=== PATIENT | female | born 1990 | race Caucasian/White ===

== ENCOUNTER 2016-09-12 19:20 | Emergency (ER) | payer OTHER ==
[~2016-09-12] VITALS: Ht 175.3 cm; Wt 123.3 kg
[~2016-09-12 19:20] MED LIST: ALBU8.5H INH; AMOX-351 PO; FLUT9.9S NAS; HYDR-3841 PO; LITH300C3 PO; PRED20TA PO; PREN1TAB73 PO
--- OUTSIDE RECORDS SUMMARY | 2016-09-12 19:25 | XMS REPORT ---
Author Author GENERATED, SYSTEM Organization Unknown Address Unknown Phone Unavailable Care Team Providers Care Theater Usher Name Role Phone [facility] PP Unavailable Reason For Visit Chief Complaint CONTRACTIONS Social History Functional Status Vital Signs Results Problems Encounter Diagnosis No relevant problems exist. Encounters Encounter Diagnosis No relevant problems exist. Plan of Care Procedures No relevant procedures performed. Immunizations No immunizations administered or ordered. Hospital Course Hospital Discharge Instructions Allergies, Adverse Reactions, Alerts * Latex Allergy has not been assessed. * IV Contrast Allergy has not been assessed. Medication Medication reconciliation has not been performed.
--- OUTSIDE RECORDS SUMMARY | 2016-09-12 19:25 | XMS REPORT ---
Author Author GENERATED, SYSTEM Organization Unknown Address Unknown Phone Unavailable Care Team Providers Care Carburetor Specialist Name Role Phone [facility] PP Unavailable Reason For Visit Chief Complaint DIZZINESS, DROWSINESS Social History Functional Status Vital Signs Results Chemistry from 10/13/2015 7:00 PMSODIUM 142 MMOL/L (136-145 MMOL/L) POTASSIUM 3.5 MMOL/L (3.5-5.1 MMOL/L) CHLORIDE 106 MMOL/L (98-107 MMOL/L) TCO2 27.9 MMOL/L (21.0-32.0 MMOL/L) *ANION GAP 8.1 MMOL/L (8.0-16.0 MMOL/L) BUN 12 MG/DL (7-18 MG/DL) CREATININE 0.85 MG/DL (0.55-1.02 MG/DL) *BUN/CREATININE RATIO 14.1 (9.1-17.0 ) GLUCOSE 123 MG/DL H (65-99 MG/DL) *GFR EST NON AFR [place] >90 ML/MIN *GFRA EST AFR AMER >90 ML/MIN CALCIUM 8.4 MG/DL L (8.5-10.1 MG/DL) BILIRUBIN TOTAL 0.30 MG/DL (0.20-1.00 MG/DL) TOTAL PROTEIN 7.7 GM/DL (6.4-8.2 GM/DL) ALBUMIN 3.6 GM/DL (3.4-5.0 GM/DL) *GLOBULIN 4.1 GM/DL H (2.3-3.5 GM/DL) *A/G RATIO 0.9 MG/DL L (1.5-2.2 MG/DL) ALK PHOS 136 U/L H (46-116 U/L) ALT (SGPT) 97 U/L H (16-63 U/L) AST (SGOT) 20 U/L (15-37 U/L) Hematology from 10/13/2015 7:00 PMWBC 11.4 X10e3/UL H (3.6-11.2 X10e3/UL) RBC 4.77 X10e6/UL (3.63-4.92 X10e6/UL) HEMOGLOBIN 12.7 G/DL (11.0-14.3 G/DL) HEMATOCRIT 39.5 % (31.2-41.9 %) *MCV 82.8 FL (79.0-98.0 FL) *MCH 26.6 PG L (27.0-33.0 PG) *MCHC 32.1 G/DL (32.0-36.0 G/DL) *RDW 14.7 % (12.3-17.0 %) *RDWSD 42.4 (37.1-47.8 ) PLATELET 273 X10e3/UL (159-386 X10e3/UL) *MPV 8.9 FL (7.4-10.4 FL) AUTOMATED DIFF PERFORMED SEGS 69.5 % *LYMPHOCYTES 19.9 % *MONOCYTES 4.5 % *EOSINOPHILS 5.1 % *BASOPHILS 1.0 % *ABSOLUTE NEUTROPHILS 7.90 X10e3/UL H (1.80-7.80 X10e3/UL) *ABSOLUTE LYMPHOCYTES 2.30 X10e3/UL (1.00-3.00 X10e3/UL) *ABSOLUTE MONOCYTES 0.50 X10e3/UL (0.30-1.00 X10e3/UL) *ABSOLUTE EOSINOPHILS 0.60 X10e3/UL H (0.00-0.50 X10e3/UL) *ABSOLUTE BASOPHILS 0.10 X10e3/UL (0.00-0.20 X10e3/UL) Urinalysis from 10/13/2015 6:55 PM*URINE COLOR YELLOW (STRAW/YELL/DK YELL ) *URINE APPEARANCE CLOUDY A (CLEAR ) URINE PH 5.5 (5.0-8.0 ) URINE SPECIFIC GRAVITY 1.020 (<=1.005->=1.030 ) *URINE GLUCOSE NEGATIVE MG/DL (NEGATIVE MG/DL) *URINE BILIRUBIN NEGATIVE (NEGATIVE ) *URINE KETONES NEGATIVE MG/DL (NEGATIVE MG/DL) *URINE BLOOD MODERATE A (NEGATIVE ) *URINE PROTEIN NEGATIVE MG/DL (NEGATIVE MG/DL) *URINE UROBILINOGEN 0.2 EU/DL (0.2-1.0 EU/DL) *URINE NITRITES NEGATIVE (NEGATIVE ) *URINE LEUKOCYTES LARGE A (NEGATIVE ) UR NEGATIVE (NEGATIVE ) *MICROSCOPIC EXAM PERFORMED PERFORMED *WBC URINE 10-25 /HPF A (0-5 /HPF) *RBC URINE 1-5 /HPF A (0-1 /HPF) *SQUAMOUS EP. CELLS MANY /LPF A (NEG-FEW /LPF) *BACTERIA MANY /HPF A (NEGATIVE /HPF) Microbiology from 10/13/2015 6:55 PM* CULTURE URINE (Preliminary Result) Specimen Number: [id number] Sample Collection Date/Time: 10/13/2015 6:55 PM Specimen Source: Urine Clean Catch CULTURE URINE: 10,000 cfu/ml mixed colony types Problems Encounter Diagnosis No relevant problems exist. Additional Problems * Acute Appendicitis Comment:Problem resolved by [facility] Workflow upon Discharge , Status:Resolved. * Acute Pain Comment:Problem resolved by [facility] Workflow upon Discharge, Status :Resolved. * Fall Risk Comment:Problem resolved by [facility] Workflow upon Discharge, Status: Resolved. * Infection Risk Comment:Problem resolved by [facility] Workflow upon Discharge, Status:Resolved. * Vaginal Delivery Comment:Problem resolved by [facility] Workflow upon Discharge, Status:Resolved. Encounters Encounter Diagnosis No relevant problems exist. Plan of Care Procedures * Completed Laparoscopic Appendectomy, by MD DARCI VICTOR, on 06/10/2015 2:56 PM * Completed Procedure Code: 73994 Procedure Name: not valued, on 06/10/2015 12: 00 AM * Completed Procedure Code: 73.59 Procedure Name: not valued, on 10/03/2014 12: 00 AM * Completed Procedure Code: 75.69 Procedure Name: not valued, on 10/03/2014 12: 00 AM * Completed Procedure Code: 73.4 Procedure Name: not valued, on 10/02/2014 12: 00 AM Immunizations No immunizations administered or ordered. Hospital Course Hospital Discharge Instructions Allergies, Adverse Reactions, Alerts * Latex Allergy has not been assessed. * IV Contrast Allergy has not been assessed. * No Known Drug Allergies. Medication Medication reconciliation has not been performed.
--- OUTSIDE RECORDS SUMMARY | 2016-09-12 19:26 | XMS REPORT ---
Author Author GENERATED, SYSTEM Organization Unknown Address Unknown Phone Unavailable Care Team Providers Care Acquisitions Assistant Name Role Phone [facility] PP Unavailable Reason For Visit Chief Complaint ABD PAIN Social History Functional Status Vital Signs Results Urinalysis from 05/26/2014 10:40 AMURINE COLOR STRAW (STRAW/YELL/DK YELL ) URINE APPEARANCE CLEAR (CLEAR ) URINE PH 7.0 (5.0-8.0 ) URINE SPECIFIC GRAVITY 1.010 (<=1.005->=1.030 ) URINE GLUCOSE NEGATIVE MG/DL (NEGATIVE MG/DL) URINE BILIRUBIN NEGATIVE (NEGATIVE ) URINE KETONES NEGATIVE MG/DL (NEGATIVE MG/DL) URINE BLOOD NEGATIVE (NEGATIVE ) URINE PROTEIN NEGATIVE MG/DL (NEGATIVE MG/DL) URINE UROBILINOGEN 0.2 EU/DL (0.2-1.0 EU/DL) URINE NITRITES NEGATIVE (NEGATIVE ) *URINE LEUKOCYTES NEGATIVE (NEGATIVE ) Problems Encounter Diagnosis No relevant problems exist. [...]
--- OUTSIDE RECORDS SUMMARY | 2016-09-12 19:26 | XMS REPORT ---
Author Author GENERATED, SYSTEM Organization Unknown Address Unknown Phone Unavailable Care Team Providers Care Director Loss Prevention Name Role Phone [facility] PP Unavailable Reason For Visit Chief Complaint HEAD INJURY Social History Functional Status Vital Signs Results Chemistry from 11/28/2015 12:02 PMSODIUM 142 MMOL/L (136-145 MMOL/L) POTASSIUM 3.8 MMOL/L (3.5-5.1 MMOL/L) CHLORIDE 106 MMOL/L (98-107 MMOL/L) TCO2 29.6 MMOL/L (21.0-32.0 MMOL/L) *ANION GAP 6.4 MMOL/L L (8.0-16.0 MMOL/L) BUN 10 MG/DL (7-18 MG/DL) CREATININE 0.91 MG/DL (0.55-1.02 MG/DL) *BUN/CREATININE RATIO 11.0 (9.1-17.0 ) GLUCOSE 105 MG/DL H (65-99 MG/DL) *GFR EST NON AFR [place] 88 ML/MIN *GFRA EST AFR AMER >90 ML/MIN CALCIUM 9.1 MG/DL (8.5-10.1 MG/DL) BILIRUBIN TOTAL 0.50 MG/DL (0.20-1.00 MG/DL) TOTAL PROTEIN 7.5 GM/DL (6.4-8.2 GM/DL) ALBUMIN 3.5 GM/DL (3.4-5.0 GM/DL) *GLOBULIN 4.0 GM/DL H (2.3-3.5 GM/DL) *A/G RATIO 0.9 MG/DL L (1.5-2.2 MG/DL) ALK PHOS 105 U/L (46-116 U/L) ALT (SGPT) 40 U/L (16-63 U/L) AST (SGOT) 9 U/L L (15-37 U/L) TROPONIN-I <0.017 NG/ML (0.000-0.056 NG/ML) *COCAINE NEGATIVE (NEG <150 ) *PCP NEGATIVE (NEG <25 ) *CANNABINOIDS NEGATIVE (NEG <50 ) *BENZODIAZEINE NEGATIVE (NEG <200 ) *AMPHETAMINE NEGATIVE (NEG <500 ) *BARBITURATES NEGATIVE (NEG <200 ) *OPIATES NEGATIVE (NEG <300 ) Hematology from 11/28/2015 12:02 PMWBC 8.0 X10e3/UL (3.6-11.2 X10e3/UL) RBC 4.71 X10e6/UL (3.63-4.92 X10e6/UL) HEMOGLOBIN 12.7 G/DL (11.0-14.3 G/DL) HEMATOCRIT 39.2 % (31.2-41.9 %) *MCV 83.1 FL (79.0-98.0 FL) *MCH 26.9 PG L (27.0-33.0 PG) *MCHC 32.4 G/DL (32.0-36.0 G/DL) *RDW 14.9 % (12.3-17.0 %) *RDWSD 43.8 (37.1-47.8 ) PLATELET 256 X10e3/UL (159-386 X10e3/UL) *MPV 9.1 FL (7.4-10.4 FL) AUTOMATED DIFF PERFORMED SEGS 66.9 % *LYMPHOCYTES 22.7 % *MONOCYTES 6.2 % *EOSINOPHILS 3.1 % *BASOPHILS 1.1 % *ABSOLUTE NEUTROPHILS 5.30 X10e3/UL (1.80-7.80 X10e3/UL) *ABSOLUTE LYMPHOCYTES 1.80 X10e3/UL (1.00-3.00 X10e3/UL) *ABSOLUTE MONOCYTES 0.50 X10e3/UL (0.30-1.00 X10e3/UL) *ABSOLUTE EOSINOPHILS 0.20 X10e3/UL (0.00-0.50 X10e3/UL) *ABSOLUTE BASOPHILS 0.10 X10e3/UL (0.00-0.20 X10e3/UL) Urinalysis from 11/28/2015 12:02 PM*URINE COLOR YELLOW (STRAW/YELL/DK YELL ) *URINE APPEARANCE CLEAR (CLEAR ) URINE PH 6.0 (5.0-8.0 ) URINE SPECIFIC GRAVITY 1.020 (<=1.005->=1.030 ) *URINE GLUCOSE NEGATIVE MG/DL (NEGATIVE MG/DL) *URINE BILIRUBIN NEGATIVE (NEGATIVE ) *URINE KETONES NEGATIVE MG/DL (NEGATIVE MG/DL) *URINE BLOOD NEGATIVE (NEGATIVE ) *URINE PROTEIN NEGATIVE MG/DL (NEGATIVE MG/DL) *URINE UROBILINOGEN 0.2 EU/DL (0.2-1.0 EU/DL) *URINE NITRITES NEGATIVE (NEGATIVE ) *URINE LEUKOCYTES TRACE A (NEGATIVE ) *MICROSCOPIC EXAM PERFORMED PERFORMED *WBC URINE 0-1 /HPF (0-5 /HPF) *RBC URINE 0-1 /HPF (0-1 /HPF) *SQUAMOUS EP. CELLS FEW /LPF (NEG-FEW /LPF) *BACTERIA FEW /HPF A (NEGATIVE /HPF) Microbiology from 11/28/2015 12:02 PM* CULTURE URINE (Preliminary Result) Specimen Number: [id number] Sample Collection Date/Time: 11/28/2015 12:02 PM Specimen Source: Urine CULTURE URINE: >100,000 cfu/ml 3 or more gram positive colony types CT Scan from 11/28/2015 12:57 PMCT CEREBRAL W/O CONTRAST History: dizizness head injury . Pt hit her head on Sunday against a railing on [employer]. pt states she could not miss work or else she would get kicked out of [employer], so she has to have a doctors note. Pt has what appears to be sores all over her body and where she pointed is scabbed over on right adventist. Pts eyes are equal and reactive, no slurred speech, A&O and responds well. Priors: None. Findings: Ventricles and Extra axial spaces: Normal in size and morphology for the patient's age. Hemorrhage: None. Cerebral parenchyma: Normal. Mass effect/midline shift: None. Brainstem/Cerebellum: Normal. Calvarium: Normal. Visualized Paranasal sinuses/Mastoids: Clear. Impression: No acute intracranial abnormality. Electronically signed by: Bailey Diaz MD Dictated: 11/28/2015 13:21 Problems Encounter Diagnosis No relevant problems exist. [...] 06/10/2015 2:56 PM * Completed Procedure Code: 18603 Procedure Name: not valued, on 06/10/2015 12: [...]
--- OUTSIDE RECORDS SUMMARY | 2016-09-12 19:26 | XMS REPORT ---
Author Author GENERATED, SYSTEM Organization Unknown Address Unknown Phone Unavailable Care Team Providers Care Applications Coordinator Name Role Phone [facility] PP Unavailable Reason For Visit Chief Complaint INDUCTION Social History Functional Status Vital Signs Hospital Vital Signs from 10/05/2014 10:04 AM:* Height : 5/9 ft,in Results Blood Gas from 10/03/2014 6:[address] PH 7.250 (7.130-7.430 ) ART. CORD BL. PCO2 48.0 MM HG (30.0-60.0 MM HG) *ART. CORD BL. PO2 <40 MM HG H (5-25 MM HG) ART. CORD BL. BE -6.4 L (-2.5-11.0 ) ZENOBIA. CORD BL. PH 7.250 (7.190-7.490 ) ZENOBIA. CORD BL. PCO2 48.0 MM HG (30.0-60.0 MM HG) ZENOBIA. CORD BL. PO2 <40 MM HG (15-45 MM HG) ZENOBIA. CORD BL. BE -6.4 L (-2.5-9.0 ) Chemistry from 10/02/2014 5:06 PMSODIUM 137 MMOL/L (136-145 MMOL/L) POTASSIUM 3.8 MMOL/L (3.5-5.1 MMOL/L) CHLORIDE 104 MMOL/L (98-107 MMOL/L) TCO2 22.2 MMOL/L (21.0-32.0 MMOL/L) ANION GAP 10.8 MMOL/L (8.0-16.0 MMOL/L) BUN 6 MG/DL L (7-18 MG/DL) CREATININE 0.63 MG/DL (0.43-0.83 MG/DL) BUN/CREATININE RATIO 9.5 (9.1-17.0 ) GLUCOSE 87 MG/DL (65-99 MG/DL) GFR EST NON AFR [place] >90 ML/MIN GFRA EST AFR AMER >90 ML/MIN CALCIUM 8.7 MG/DL (8.5-10.1 MG/DL) ALT (SGPT) 14 U/L L (16-63 U/L) AST (SGOT) 9 U/L L (15-37 U/L) URIC ACID 6.1 MG/DL H (2.6-6.0 MG/DL) Hematology from 10/04/2014 5:55 AMWBC 11.7 X10e3/UL H (3.6-11.2 X10e3/UL) RBC 3.96 X10e6/UL (3.63-4.92 X10e6/UL) HEMOGLOBIN 10.9 G/DL L (11.0-14.3 G/DL) HEMATOCRIT 32.8 % (31.2-41.9 %) MCV 82.9 FL (79.0-98.0 FL) MCH 27.5 PG (27.0-33.0 PG) MCHC 33.2 G/DL (32.0-36.0 G/DL) RDW 16.0 % (12.3-17.0 %) RDWSD 45.5 (37.1-47.8 ) PLATELET 226 X10e3/UL (159-386 X10e3/UL) MPV 9.4 FL (7.4-10.4 FL) AUTOMATED DIFF PERFORMED SEGS 72.9 % LYMPHOCYTES 18.9 % MONOCYTES 5.7 % EOSINOPHILS 2.0 % BASOPHILS 0.5 % ABSOLUTE NEUTROPHILS 8.60 X10e3/UL H (1.80-7.80 X10e3/UL) ABSOLUTE LYMPHOCYTES 2.20 X10e3/UL (1.00-3.00 X10e3/UL) ABSOLUTE MONOCYTES 0.70 X10e3/UL (0.30-1.00 X10e3/UL) ABSOLUTE EOSINOPHILS 0.20 X10e3/UL (0.00-0.50 X10e3/UL) ABSOLUTE BASOPHILS 0.10 X10e3/UL (0.00-0.20 X10e3/UL) Hematology from 10/02/2014 5:06 PMWBC 12.4 X10e3/UL H (3.6-11.2 X10e3/UL) RBC 4.22 X10e6/UL (3.63-4.92 X10e6/UL) HEMOGLOBIN 11.6 G/DL (11.0-14.3 G/DL) HEMATOCRIT 35.1 % (31.2-41.9 %) MCV 83.1 FL (79.0-98.0 FL) MCH 27.4 PG (27.0-33.0 PG) MCHC 33.0 G/DL (32.0-36.0 G/DL) RDW 16.0 % (12.3-17.0 %) RDWSD 45.5 (37.1-47.8 ) PLATELET 252 X10e3/UL (159-386 X10e3/UL) MPV 10.0 FL (7.4-10.4 FL) MANUAL DIFF PERFORMED SEGS 84.0 % BANDS 1.0 % LYMPHOCYTES 13.0 % MONOCYTES 1.0 % EOSINOPHILS 0.0 % BASOPHILS 1.0 % ABSOLUTE NEUTROPHILS 10.54 X10e3/UL H (1.80-7.80 X10e3/UL) ABSOLUTE LYMPHOCYTES 1.61 X10e3/UL (1.00-3.00 X10e3/UL) ABSOLUTE MONOCYTES 0.12 X10e3/UL L (0.30-1.00 X10e3/UL) ABSOLUTE EOSINOPHILS 0.00 X10e3/UL (0.00-0.50 X10e3/UL) ABSOLUTE BASOPHILS 0.12 X10e3/UL (0.00-0.20 X10e3/UL) NUCLEATED RBC MANUAL 1.0 /100 WBC (0.0-1.0 /100 WBC) OVALOCYTES 1+ Hematology from 10/02/2014 2:24 PMWBC 13.2 X10e3/UL H (3.6-11.2 X10e3/UL) RBC 4.28 X10e6/UL (3.63-4.92 X10e6/UL) HEMOGLOBIN 11.7 G/DL (11.0-14.3 G/DL) HEMATOCRIT 35.4 % (31.2-41.9 %) MCV 82.9 FL (79.0-98.0 FL) MCH 27.2 PG (27.0-33.0 PG) MCHC 32.9 G/DL (32.0-36.0 G/DL) RDW 15.6 % (12.3-17.0 %) RDWSD 45.1 (37.1-47.8 ) PLATELET 247 X10e3/UL (159-386 X10e3/UL) MPV 10.2 FL (7.4-10.4 FL) AUTOMATED DIFF PERFORMED SEGS 81.7 % LYMPHOCYTES 11.8 % MONOCYTES 5.3 % EOSINOPHILS 0.8 % BASOPHILS 0.4 % ABSOLUTE NEUTROPHILS 10.70 X10e3/UL H (1.80-7.80 X10e3/UL) ABSOLUTE LYMPHOCYTES 1.60 X10e3/UL (1.00-3.00 X10e3/UL) ABSOLUTE MONOCYTES 0.70 X10e3/UL (0.30-1.00 X10e3/UL) ABSOLUTE EOSINOPHILS 0.10 X10e3/UL (0.00-0.50 X10e3/UL) ABSOLUTE BASOPHILS 0.10 X10e3/UL (0.00-0.20 X10e3/UL) Blood Bank from 10/03/2014 8:31 AMTEST COMMENT BB See Below Problems Encounter Diagnosis * Vaginal Delivery Comment:Problem resolved by [facility] Workflow upon Discharge, Status:Resolved. Encounters Encounter Diagnosis * Vaginal Delivery Comment:Problem resolved by [facility] Workflow upon Discharge, Status:Resolved. Plan of Care Treatment Plan from 10/05/2014 11:45 AM:* Care Management Note : workers compensation claims analyst was informed by RN that patient was inquiring about how to get baby onto [facility] ; SW made referral to Lucy Taylor to follow up with patient regarding Medicaid information. Procedures No relevant procedures performed. Immunizations No immunizations administered or ordered. Hospital Course Hospital Discharge Instructions Allergies, Adverse Reactions, Alerts * No Latex Allergy. * No IV Contrast Allergy. * No Known Drug Allergies. Medication It is the responsibility of the patient or patient indirect sales representative to confirm the list of medications with either the patient's personal care provider or the patient's follow-up care provider to ensure the patient has an appropriate list of medications to take at home. Discharge medications New medications* acetaminophen-codeine 300 mg-30 mg Tablet, Ordered By: JOSSY ELIZABETH MD Directions: 1-2 oral every four hours PRN PAIN * sertraline 25 mg Tablet, Ordered By: JOSSY ELIZABETH MD Directions: 1 tablet oral daily Stopped medications* None
--- OUTSIDE RECORDS SUMMARY | 2016-09-12 19:26 | XMS REPORT ---
Author Author GENERATED, SYSTEM Organization Unknown Address Unknown Phone Unavailable Care Team Providers Care Profiler Name Role Phone [facility] PP Unavailable Reason For Visit Chief [...]
--- OUTSIDE RECORDS SUMMARY | 2016-09-12 19:26 | XMS REPORT | Continuity of Care Document ---
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 Visit Date/Time Discharge Status Pt. Type Provider Facility Loc./Unit Complaint [id number] 06/08/2015 00:00:00 05/17/2016 00: 00:00 [facility] Outpatient DOMENICO PEARSON APRN
--- OUTSIDE RECORDS SUMMARY | 2016-09-12 19:27 | XMS REPORT | Continuity of Care Document ---
Author Author [facility] Organization [facility] Address Unknown Phone Unavailable Care Team Providers Care Production Internship Name Role Phone IVIS SANDOVAL Primary Care Physician [phone] Insurance Providers Guarantor Maria Teresa Lim Address [address] [facility] [address] [place] [address] Email DENIED 16 Payer [employer] Policy Number [id number] Subscriber's Name Juana Blum Relationship 19 Child Group Number [id number] Payer [employer] Policy Number [id number] Subscriber's Name ArnaudNba Ortez Relationship 19 Child Group Number [id number] Chief Complaint and Reason for Visit Chief Complaint Cough,Fever,Flu,URI Reason for Visit Acute bronchitis Problems Active Problems Medical Problem Onset Date Status Acute bronchitis Unknown Acute Past Problems Medical Problem Onset Date Allergic rhinitis due to allergen Unknown Atypical chest pain Unknown Fall on same level Unknown Mild concussion Unknown Nausea Unknown Viral syndrome Unknown Medications Current Home Medications Medication Dose Units Route Directions Days Qty Instructions Start Date Albuterol Sulfate (Proair Hfa 90 Mcg/Actuation) 8.5 Gm Hfa.aer.ad 1 Puff Inhalation Every 4 Hours as needed for Wheezing [address] Max Snider Surgical [employer] [address] [phone] 07/18/16 Amoxicillin/Potassium Clav (Augmentin 875-125 Tablet) 1 Each Tablet 1 Tab Oral Twice A Day 7 Days 14 Tablet TAKE WITH MEALS Supervising physician Dr. Max Snider [facility] [address] [facility] [phone] 07/18/16 Fluticasone Propionate (Flonase Allergy Relief 50 Mcg/Actuation Nasal) 9.9 Ml [place].susp 2 [place] Intranasal Bedtime 06/25/16 Hydroxyzine Pamoate 25 Mg Capsule 25 Mg Oral Three Times A Day [place] Carbonate 300 Mg Capsule 300 Mg Oral Three Times A Day Pnv95/Ferrous Fumarate/Fa ( Tablet) 1 Each Tablet 1 Tab Oral Daily 06/25/16 Prednisone 20 Mg Tablet 60 Mg Oral Daily 5 Days 15 Tablet Take in the am to avoid insomnia Supervising physician Dr. Max Snider Surgical Processor * [facility] 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 Plan of Care Discharge Date 07/18/16 11:20am Disposition 01 DISCHARGED HOME, SELF-CARE Condition at Discharge Stable Instructions/Education Provided Cigarette Smoking and Your Health (GEN) Acute Bronchitis (ED) Forms Provided [facility] Work/School Permit Prescriptions See Medication Section Referrals IVIS SANDOVAL Address: [address] [place] [address] [address] [place] [phone] BONIFACIO CRANDALL MD Address: [address] [place] [address] [address] [place] [address] Functional Status No functional status results. Allergies, Adverse Reactions, Alerts Allergen Type Severity Reaction Status Last Updated Tramadol Allergy Unknown SEIZURE Active 07/18/16 Immunizations Query Response on File Recorded Date/Time Influenza Vaccine Hx NONE 07/18/16 10:39am Tdap Vaccine Hx 04/25/16 06/25/16 4:35pm Vital Signs Acute Vital Signs Vital Response Date/Time Temperature (Fahrenheit) 97.3 deg F (96.8 - 99.1) 07/18/2016 10:44am Temperature (Calculated Celsius) 36.49361 degrees C (36.0 - 37.3) 07/18/2016 10:44am Pulse Rate (adult) 87 bpm (60 - 100) 07/18/2016 10:44am Respiratory Rate 16 breaths/min (10 - 20) 06/25/2016 5:26pm O2 Sat by Pulse Oximetry 97 % (90 - 100) 07/18/2016 10:44am Blood Pressure 120/65 mm Hg 07/18/2016 10:44am Height (Feet) 5 feet 07/18/2016 10:44am Height (Inches) 8.00 inches 07/18/2016 10:44am Weight (Kilograms) 129.900 kg 07/18/2016 10:44am Body Mass Index (BMI) 43.0 07/18/2016 10:44am Results Laboratory Results Test Name Result Units Flags Reference Collection Date/Time Result Date/ Time Comments White Blood Count 9.5 T/MM3 4.5-11.0 05/30/2016 7:54am 05/30/2016 7: 59am Red Blood Count 4.28 M/MM3 4.00-5.20 05/30/2016 7:54am 05/30/2016 7: 59am Hemoglobin 11.8 GM/DL L 12-16 05/30/2016 7:54am 05/30/2016 7:59am Hematocrit 36.5 % 36-46 05/30/2016 7:54am 05/30/2016 7:59am Mean Corpuscular Volume 85.3 UM3 80-100 05/30/2016 7:54am 05/30/2016 7: 59am Mean Corpuscular Hemoglobin 27.6 UUG 26-34 05/30/2016 7:54am 2015 7:59am Mean Corpuscular Hemoglobin Concent 32.3 GM/DL 31-37 05/30/2016 7:54am 05/30/2016 7:59am RDW Standard Deviation 42.7 FL 36.9-50.2 05/30/2016 7:54am 05/30/2016 7 :59am Platelet Count 283 T/MM3 130-400 05/30/2016 7:54am 05/30/2016 7:59am Mean Platelet Volume 10.3 UM3 9.4-12.4 05/30/2016 7:54am 05/30/2016 7: 59am Neutrophils (%) (Auto) 68.7 % H 33-66 05/30/2016 7:54am 05/30/2016 7: 59am Lymphocytes (%) (Auto) 22.1 % L 23-45 05/30/2016 7:54am 05/30/2016 7: 59am Monocytes (%) (Auto) 4.6 % 0-9.0 05/30/2016 7:54am 05/30/2016 7:59am Eosinophils (%) (Auto) 4.2 % H 0-4 05/30/2016 7:54am 05/30/2016 7:59am Basophils (%) (Auto) 0.3 % 0-2 05/30/2016 7:54am 05/30/2016 7:59am Immature Granulocyte % (Auto) 0.1 % 0.0-0.5 05/30/2016 7:54am 2015 7:59am Absolute Neutrophils (auto) 6.5 T/MM3 1.8-7.7 05/30/2016 7:54am 2015 7:59am Absolute Lymphocytes (auto) 2.1 T/MM3 1-4.8 05/30/2016 7:54am 2015 7:59am Absolute Monocytes (auto) 0.4 T/MM3 0-0.8 05/30/2016 7:54am 05/30/2016 7:59am Absolute Eosinophils (auto) 0.4 T/MM3 0-0.5 05/30/2016 7:54am 2015 7:59am Absolute Basophils (auto) 0.0 T/MM3 0-0.2 05/30/2016 7:54am 05/30/2016 7:59am Absolute Immature Granulocyte (auto 0.01 T/MM3 0.00-0.03 05/30/2016 7: 54am 05/30/2016 7:59am Prothromb Time International Ratio 1.06 H 0.76-1.04 05/30/2016 7:54am 05/30/2016 8:03am THERAPUTIC RANGE=2.00-3.00 FOR ANTI-THROMBOSIS THERAPUTIC RANGE=2.50-3.50 FOR IMPLANTED VALVE Icterus Index < 2 0-7 05/30/2016 7:54am 05/30/2016 8:21am Chemistry Specimen Hemolysis < 15 0-25 05/30/2016 7:54am 05/30/2016 8 :21am 0-25: Specimen Exhibited No Hemolysis. Turbidity < 20 0-20 05/30/2016 7:54am 05/30/2016 8:21am Sodium Level 142 MEQ/L 134-144 05/30/2016 7:54am 05/30/2016 8:08am Potassium Level 4.0 MEQ/L 3.6-5 05/30/2016 7:54am 05/30/2016 8:08am Chloride Level 108 MEQ/L H 98-107 05/30/2016 7:54am 05/30/2016 8:08am Carbon Dioxide Level 23 MEQ/L 22-30 05/30/2016 7:54am 05/30/2016 8: 08am Anion Gap 11 MEQ/L 5-15 05/30/2016 7:54am 05/30/2016 8:08am Blood Urea Nitrogen 13.0 MG/DL 7-17 05/30/2016 7:54am 05/30/2016 8: 08am Creatinine 0.8 MG/DL 0.7-1.2 05/30/2016 7:54am 05/30/2016 8:08am BUN/Creatinine Ratio 16 RATIO 6-26 05/30/2016 7:54am 05/30/2016 8:08am Glomerular Filtration Rate Calc 87 05/30/2016 7:54am 05/30/2016 8: 08am Glucose Level 108 MG/DL 65-110 05/30/2016 7:54am 05/30/2016 8:08am Calculated Osmolality 274 MOSM/KG 261-280 05/30/2016 7:54am 05/30/2016 8:08am Calcium Level 9.4 MG/DL 8.4-10.2 05/30/2016 7:54am 05/30/2016 8:08am Total Bilirubin 0.80 MG/DL 0.20-1.30 05/30/2016 7:54am 05/30/2016 8: 08am Alkaline Phosphatase 83 U/L 38-126 05/30/2016 7:54am 05/30/2016 8:08am Total Protein 7.7 G/DL 6.3-8.2 05/30/2016 7:54am 05/30/2016 8:08am Albumin 4.2 G/DL 3.5-5.0 05/30/2016 7:54am 05/30/2016 8:08am Globulin 3.5 G/DL 2.4-3.6 05/30/2016 7:54am 05/30/2016 8:08am Albumin/Globulin Ratio 1.2 RATIO 1.1-2.2 05/30/2016 7:54am 05/30/2016 8 :08am Aspartate Amino Transf (AST/SGOT) 17 U/L 14-36 05/30/2016 7:54am 2015 8:08am Alanine Aminotransferase (ALT/SGPT) 45 U/L 9-52 05/30/2016 7:54am 05/30 8:08am Troponin I < 0.012 ng/ml 0-0.12 05/30/2016 7:54am 05/30/2016 8:21am Troponin values with a difference of 55% increase from orginal troponin value represent a true biological DELTA value. (%increase Calc=Orginal Troponin value, divided by subsequent Troponin value, multiplied by 100) [id number]-Type Natriuretic Peptide 44 PG/ML 0-175 05/30/2016 7:54am 8:21am Rule in cut points: <50 years old=450; 50-75 years old=900; >75 years old=1800; When utilizing ProBNP rule-in cut points, adjustment for impaired renal function is typically not required. Magnesium Level 2.0 MG/DL 1.6-2.3 05/30/2016 7:54am 05/30/2016 8:08am [place] Level 0.5 MMOL/L L 0.6-1.2 05/30/2016 7:54am 05/30/2016 9:01am Thyroid Stimulating Hormone (TSH) 1.98 MIU/L 0.47-4.68 05/30/2016 7: 54am 05/30/2016 8:38am Glucometer 89 mg/dL 65-110 05/30/2016 7:54am 05/30/2016 8:00am Procedures Procedure Status Date Provider(s) Chest x-ray 2vw frontal&latl Completed 05/30/16 Comprehen metabolic panel Completed 05/30/16 Assay of lithium Completed 05/30/16 Urine test Completed 05/30/16 Reagent strip/blood glucose Completed 05/30/16 Assay of magnesium Completed 05/30/16 Assay of natriuretic peptide Completed 05/30/16 Assay thyroid stim hormone Completed 05/30/16 Assay of troponin quant Completed 05/30/16 Complete cbc w/auto diff wbc Completed 05/30/16 Prothrombin time Completed 05/30/16 Electrocardiogram tracing Completed 05/30/16 Ther/proph/diag inj iv push Completed 05/30/16 Emergency dept visit Completed 05/30/16 [id number]"INJECTION, ONDANSETRON HYDROCHLORIDE, PER 1 MG" Completed 05/30/16 Emergency dept visit Completed 06/04/16 Ct head/brain w/o dye Completed 06/25/16 Urine test Completed 06/25/16 Emergency dept visit Completed 06/25/16 Encounters Encounter Location Arrival/Admit Date Discharge/Depart Date Attending Provider Departed Emergency Room [facility] 07/18/16 10:22am 07/18/16 11: 20am LIZETT TIJERINA APRN Departed Emergency Room [facility] 06/25/16 4:03pm 06/25/16 5: 26pm MAX SNIDER MD Departed Emergency Room [facility] 06/04/16 10:50pm 06/05/16 12: 01am MAX SNIDER MD Departed Emergency Room [facility] 05/30/16 7:29am 05/30/16 11: 02am CARLOZ SEXTON MD Recent Diagnosis
--- OUTSIDE RECORDS SUMMARY | 2016-09-12 19:27 | XMS REPORT ---
Author Author GENERATED, SYSTEM Organization Unknown Address Unknown Phone Unavailable Care Team Providers Care Reconciliation Specialist Name Role Phone [facility] PP Unavailable Reason For Visit Chief Complaint 39 WKS CONTRACTION Social History Functional Status Vital Signs Results [...]
--- OUTSIDE RECORDS SUMMARY | 2016-09-12 19:27 | XMS REPORT ---
Author Author GENERATED, SYSTEM Organization Unknown Address Unknown Phone Unavailable Care Team Providers Care Tactical/Mobile Watch Officer Name Role Phone [facility] PP Unavailable Reason For Visit Chief Complaint CRISIS Social History Functional Status Vital Signs Results Chemistry from 10/31/2015 12:26 PMSODIUM 142 MMOL/L (136-145 MMOL/L) POTASSIUM 3.9 MMOL/L (3.5-5.1 MMOL/L) CHLORIDE 106 MMOL/L (98-107 MMOL/L) TCO2 28.9 MMOL/L (21.0-32.0 MMOL/L) *ANION GAP 7.1 MMOL/L L (8.0-16.0 MMOL/L) BUN 13 MG/DL (7-18 MG/DL) CREATININE 0.95 MG/DL (0.55-1.02 MG/DL) *BUN/CREATININE RATIO 13.7 (9.1-17.0 ) GLUCOSE 105 MG/DL H (65-99 MG/DL) *GFR EST NON AFR MALIAN 83 ML/MIN *GFRA EST AFR AMER >90 ML/MIN CALCIUM 8.2 MG/DL L (8.5-10.1 MG/DL) BILIRUBIN TOTAL 0.50 MG/DL (0.20-1.00 MG/DL) TOTAL PROTEIN 7.1 GM/DL (6.4-8.2 GM/DL) ALBUMIN 3.3 GM/DL L (3.4-5.0 GM/DL) *GLOBULIN 3.8 GM/DL H (2.3-3.5 GM/DL) *A/G RATIO 0.9 MG/DL L (1.5-2.2 MG/DL) ALK PHOS 101 U/L (46-116 U/L) ALT (SGPT) 60 U/L (16-63 U/L) AST (SGOT) 23 U/L (15-37 U/L) TSH 1.041 UIU/ML (0.340-4.820 UIU/ML) TEST NEGATIVE (NEGATIVE ) ALCOHOL <0.003 GM/DL ACETAMINOPHEN <2 MCG/ML L (10-30 MCG/ML) SALICYLATE <0.2 MG/DL L (2.8-20.0 MG/DL) Hematology from 10/31/2015 12:26 PMWBC 8.1 X10e3/UL (3.6-11.2 X10e3/UL) RBC 4.43 X10e6/UL (3.63-4.92 X10e6/UL) HEMOGLOBIN 11.7 G/DL (11.0-14.3 G/DL) HEMATOCRIT 36.4 % (31.2-41.9 %) *MCV 82.1 FL (79.0-98.0 FL) *MCH 26.4 PG L (27.0-33.0 PG) *MCHC 32.2 G/DL (32.0-36.0 G/DL) *RDW 14.9 % (12.3-17.0 %) *RDWSD 42.9 (37.1-47.8 ) PLATELET 249 X10e3/UL (159-386 X10e3/UL) *MPV 8.9 FL (7.4-10.4 FL) AUTOMATED DIFF PERFORMED SEGS 65.0 % *LYMPHOCYTES 25.5 % *MONOCYTES 5.8 % *EOSINOPHILS 2.6 % *BASOPHILS 1.1 % *ABSOLUTE NEUTROPHILS 5.30 X10e3/UL (1.80-7.80 X10e3/UL) *ABSOLUTE LYMPHOCYTES 2.10 X10e3/UL (1.00-3.00 X10e3/UL) *ABSOLUTE MONOCYTES 0.50 X10e3/UL (0.30-1.00 X10e3/UL) *ABSOLUTE EOSINOPHILS 0.20 X10e3/UL (0.00-0.50 X10e3/UL) *ABSOLUTE BASOPHILS 0.10 X10e3/UL (0.00-0.20 X10e3/UL) Problems Encounter Diagnosis No relevant problems exist. [...] 06/10/2015 2:56 PM * Completed Procedure Code: 76860 Procedure Name: not valued, on 06/10/2015 12: [...]
--- OUTSIDE RECORDS SUMMARY | 2016-09-12 19:27 | XMS REPORT ---
Author Author GENERATED, SYSTEM Organization Unknown Address Unknown Phone Unavailable Care Team Providers Care Supervisor Electric Name Role Phone [facility] PP Unavailable Reason For Visit Reason for Visit from 06/11/2015 6:38 AM:* Pt Stated Reason for Adm : Appendicitis Chief Complaint ACUTE APPENDICITIS Social History Social History from 06/11/2015 11:10 AM:* Tobacco Use? : Former Smoker Social History from 06/11/2015 6:38 AM:* Tobacco Use? : Former Smoker Functional Status Functional Status from 06/11/2015 7:20 AM:* LOC : Resting quietly, eyes closed * Oriented To : Resting quietly,eyes closed * Weight Bearing Status : Full * Assist Level : Partial * # Assists : 1 Functional Status from 06/11/2015 6:38 AM:* LOC : Alert * Oriented To : Person,Place,Time,Event * Weight Bearing Status : Full * Assist Level : Independent * # Assists : Independent Functional Status from 06/11/2015 12:55 AM:* LOC : Alert * Oriented To : Person,Place,Time,Event * Weight Bearing Status : Full * Assist Level : Independent * # Assists : Independent Functional Status from 06/10/2015 6:38 PM:* # Assists : 1 Functional Status from 06/10/2015 6:35 PM:* # Assists : 1 Functional Status from 06/10/2015 4:11 PM:* LOC : Drowsy Functional Status from 06/10/2015 3:52 PM:* LOC : Drowsy Vital Signs Hospital Vital Signs from 06/11/2015 9:51 AM:* Height : 5/9 ft,in Hospital Vital Signs from 06/11/2015 7:05 AM:* Height : 5/9 ft,in * Temperature : 96.9 F * Pulse : 65 * Respirations : 18 * BP : 138/73 Hospital Vital Signs from 06/11/2015 6:38 AM:* Weight : 119.2/ kg * Height : 5/9 ft,in Hospital Vital Signs from 06/10/2015 10:19 PM:* Height : 5/9 ft,in * Temperature : 96.2 F * Pulse : 70 * Respirations : 18 * BP : 129/68 Hospital Vital Signs from 06/10/2015 7:26 PM:* Height : 5/9 ft,in * Temperature : 95.5 F * Pulse : 74 * Respirations : 16 * BP : 130/83 Hospital Vital Signs from 06/10/2015 6:35 PM:* Height : 5/9 ft,in * Pulse : 68 * Respirations : 16 * BP : 126/79 Hospital Vital Signs from 06/10/2015 6:05 PM:* Height : 5/9 ft,in * Pulse : 64 * Respirations : 18 * BP : 131/86 Hospital Vital Signs from 06/10/2015 5:50 PM:* Height : 5/9 ft,in * Pulse : 66 * BP : 161/86 Hospital Vital Signs from 06/10/2015 5:35 PM:* Height : 5/9 ft,in * Pulse : 66 * Respirations : 17 * BP : 183/84 Hospital Vital Signs from 06/10/2015 5:20 PM:* Height : 5/9 ft,in * Pulse : 67 * Respirations : 16 * BP : 163/86 Hospital Vital Signs from 06/10/2015 5:05 PM:* Height : 5/9 ft,in * Temperature : 96.4 F * Pulse : 73 * Respirations : 19 * BP : 141/81 Hospital Vital Signs from 06/10/2015 4:45 PM:* Heart Rate : 62 * Resp Rate : 16 * Systolic BP (mmHg) : 156 * Diastolic BP (mmHg) : 97 * Mean BP (mmHg) : 114 * O2 Saturation (%) : 97 Hospital Vital Signs from 06/10/2015 4:40 PM:* Temp : 97.9 * Heart Rate : 64 * Resp Rate : 15 * Systolic BP (mmHg) : 163 * Diastolic BP (mmHg) : 91 * Mean BP (mmHg) : 114 * O2 Saturation (%) : 97 Hospital Vital Signs from 06/10/2015 4:35 PM:* Heart Rate : 68 * Resp Rate : 11 * Systolic BP (mmHg) : 161 * Diastolic BP (mmHg) : 96 * Mean BP (mmHg) : 113 * O2 Saturation (%) : 98 Hospital Vital Signs from 06/10/2015 4:30 PM:* Heart Rate : 63 * Resp Rate : 10 * Systolic BP (mmHg) : 154 * Diastolic BP (mmHg) : 90 * Mean BP (mmHg) : 110 * O2 Saturation (%) : 100 Hospital Vital Signs from 06/10/2015 4:25 PM:* Temp : 98 * Heart Rate : 62 * Resp Rate : 14 * Systolic BP (mmHg) : 159 * Diastolic BP (mmHg) : 97 * Mean BP (mmHg) : 116 * O2 Saturation (%) : 100 Hospital Vital Signs from 06/10/2015 4:20 PM:* Heart Rate : 64 * Resp Rate : 15 * Systolic BP (mmHg) : 153 * Diastolic BP (mmHg) : 90 * Mean BP (mmHg) : 119 * O2 Saturation (%) : 100 Hospital Vital Signs from 06/10/2015 4:15 PM:* Heart Rate : 62 * Resp Rate : 17 * Systolic BP (mmHg) : 169 * Diastolic BP (mmHg) : 93 * Mean BP (mmHg) : 118 * O2 Saturation (%) : 100 Hospital Vital Signs from 06/10/2015 4:10 PM:* Temp : 98.1 * Heart Rate : 66 * Resp Rate : 15 * Systolic BP (mmHg) : 174 * Diastolic BP (mmHg) : 93 * Mean BP (mmHg) : 115 * O2 Saturation (%) : 98 Hospital Vital Signs from 06/10/2015 4:05 PM:* Heart Rate : 69 * Resp Rate : 19 * Systolic BP (mmHg) : 154 * Diastolic BP (mmHg) : 95 * Mean BP (mmHg) : 118 * O2 Saturation (%) : 100 Hospital Vital Signs from 06/10/2015 4:00 PM:* Heart Rate : 69 * Resp Rate : 17 * Systolic BP (mmHg) : 162 * Diastolic BP (mmHg) : 94 * Mean BP (mmHg) : 118 * O2 Saturation (%) : 100 Hospital Vital Signs from 06/10/2015 3:55 PM:* Temp : 97.4 * Heart Rate : 72 * Resp Rate : 19 * Systolic BP (mmHg) : 150 * Diastolic BP (mmHg) : 93 * Mean BP (mmHg) : 111 * O2 Saturation (%) : 100 Hospital Vital Signs from 06/10/2015 2:56 PM:* Weight : 136.0/ kg * Height : 5/9 ft,in * Temperature : 98.9 F * Pulse : 71 * Respirations : 20 * BP : 110/86 Results Problems Encounter Diagnosis * Acute Appendicitis Status:Active. * Acute Pain Status:Active. * Fall Risk Status:Active. * Infection Risk Status:Active. Additional Problems * Vaginal Delivery Comment:Problem resolved by [facility] Workflow upon Discharge, Status:Resolved. Encounters Encounter Diagnosis * Acute Appendicitis Status:Active. * Acute Pain Status:Active. * Fall Risk Status:Active. * Infection Risk Status:Active. Plan of Care Treatment Plan from 06/11/2015 2:01 PM:* Care Management Note : Admission status: Outpatient. [facility] following Laparoscopic appendectomy for Acute appendicitis with localized peritonitis. labs and vital signs noted. breathing treatments. monitor oximetry. monitor I/O. Activity: ambulate 4 times a day. IVF at 100. patient is going home today. meets outpatient status. Procedures * Completed Laparoscopic Appendectomy, by MD DARCI VICTOR, on 06/10/2015 2:56 PM * Completed Procedure Code: 73.59 Procedure Name: not valued, on 10/03/2014 12: 00 AM * Completed Procedure Code: 75.69 Procedure Name: not valued, on 10/03/2014 12: 00 AM * Completed Procedure Code: 73.4 Procedure Name: not valued, on 10/02/2014 12: 00 AM Immunizations No immunizations administered or ordered. Hospital Course Hospital Discharge Instructions How to care for yourself at home from 06/11/2015 11:10 AM:* Discharge Activity : May Shower,Do not engage in sports, heavy work or heavy lifting until your physician gives permission,No Tub Bath * Do not drive or operate machinery for: : 2 days * Discharge Diet : Diet as tolerated * Discharge Wound Care : Notify your physician if the following develops: redness, swelling, drainage or color of drainage changes, odor or increased pain. * Remove dressing in: : Sunday * Call your doctor if: : Fever over 101 F or severe chills,Chest pain or other unexplained symptoms,Tingling or numbness develops,A sudden increase or decrease in weight,You have persistent or worsening symptoms,If you have Heart Failure and you gain 3 pounds within 1 week or your symptoms worsen. (Weigh at home tomorrow morning) * Specific Discharge Teaching Instructions provided: : No * Discharge on Warfarin : No Allergies, Adverse Reactions, Alerts * No Latex Allergy. * No IV Contrast Allergy. * No Known Drug Allergies. Medication It is the responsibility of the patient or patient business banking representative to confirm the list of medications with either the patient's personal care provider or the patient's follow-up care provider to ensure the patient has an appropriate list of medications to take at home. Discharge medications New medications* HYDROcodone-acetaminophen (Cross) 5 mg-325 mg Tablet, Ordered By: GORDON KENNEDY RN Directions: 1-2 tabs oral every 4hrs prn * minocycline 100 mg Tablet, Ordered By: GORDON KENNEDY RN Directions: 1 tablet oral daily Additional Instructions: For 14 days. Continued medications* sertraline 50 mg Tablet, Ordered By: GORDON KENNEDY RN Directions: 1 tablet oral daily Stopped medications* None
[2016-09-12 19:39] VITALS: Ht 175.3 cm; Wt 123.3 kg
[2016-09-12] MEDS ORDERED: NO DAILY MEDS (20:09)
--- NOTE | 2016-09-12 20:25 | NUR ---
PROVIDER DR. HUANG IN ROOM WITH PT.
--- NOTE | 2016-09-12 20:35 | NUR ---
PT STATUS/EMESIS AND DIARRHEA PT HAS AN EPISODE OF VOMITING, IS ASSISTED TO RESTROOM AND CONTINUES TO HAVE SEVERAL EPISODED OF VOMITING, PT IS INCONTINENT OF URINE AND BOWEL AT THIS TIME. PT ASSISTED IN CLEANING UP, GIVEN CLEAN GOWN AND DISPOSABLE PANTIES AND NON-SLIP SOCKS AND THEN IS ASSISTED BACK TO COT, CALL LIGHT LEFT IN REACH.
[2016-09-12] MEDS ORDERED: ONDANSETRON 4mg/2ml INJECTION IV ONE (20:45)
[2016-09-12] MEDS ORDERED: KETOROLAC 30mg/ml INJECTION IV ONE (20:45)
--- NOTE | 2016-09-12 21:04 | ERPDOC ---
Departure Disposition Decision Date: Sep 12, 2016 Disposition Decision Time: 23:03 Disposition: 01 DISCHARGED HOME, SELF-CARE Impression Impression Impression: Primary Impression: Gastroenteritis Severity: Moderate Condition: Improved Seen By: Physician only Referrals: IVIS SANDOVAL (PCP) 3 Days BONIFACIO CRANDALL MD (Family) Patient Instructions: Gastroenteritis (ED) Problems/Meds/Labs Reviewed?: Yes Medications reviewed and manag: Yes Additional Instructions: You have gastroenteritis (a stomach bug). Take the zofran for nausea. Use ibuprofen for stomach pain and cramping. Drink plenty of fluids, and allow the diarrhea to pass. Follow up with your doctor later this week. Departure Forms: Return to Work/School Permit Follow up care ordered?: Yes Mental Status: Alert, Oriented Scripts Ondansetron (Zofran Odt) 4 Mg Tab.rapdis 4 MG PO QID Y for NAUSEA &/OR VOMITING, #20 TAB 0 Refills Prov: OCTOBERLOS DO 09/12/16 HPI - Abdominal Pain General Chief Complaint: Nausea,Vomiting,Diarrhea Stated Complaint: NAUSEA/ Time Seen by Provider: 20:37 Source: patient History/Exam Limitations: no limitations HPI - Abdominal Pain Initial Comments 25yo woman presents to the ER tonight for 3 days of N/V/D. Pt states that she got some food from the [employer] - she thinks the food was 'off'. As people have continued to ask pt her hx, the length of her illness has extended to 7+ days, and her list of complaints continues to grow. Pt lives with her family in [place], but she states that everyone at home is currently hospitalized. Pt states that she just needs someplace to sleep tonight. She left work tonight due to her sx; wants a work note. Pt is bipolar, and is supposed to be taking 2 medications (including lithium), but she self- discontinued them 2+ months ago. Occurred At: home Onset: Gradual, Getting worse Duration: 1 week Location: generalized abdomen Activities at Onset: none Modifying Factors: IMPROVES WITH: defecating, urinating, vomiting Associated Symptoms: back pain, chest pain, diaphoresis, fatigue, fever/chills , headache, heartburn, nausea/vomiting, shortness of breath, weakness, DENIES: swelling/mass in abdomen, syncope Hx of Similar Symptoms: No Allergies: Coded Allergies: tramadol (Verified Allergy, Unknown, SEIZURE, 09/12/16) Past History Past Medical History Respiratory: asthma Psychological: bipolar Surgical History Denies Surgeries Social History Substance Use Type: does not use Substance last used: days (ago) Alcohol Intake: none Last Drink: unknown Review of Systems Unable to Obtain ROS Due to: clinical condition Constitutional Constitutional: appetite decrease, chills, fatigue, fever, insomnia, weakness Pulmonary Respiratory: dyspnea GI Upper Abdomen: heartburn/indigestion, nausea, pain, vomiting, DENIES: dysphagia , food intolerances, hematemesis Lower Abdomen: diarrhea, pain, DENIES: blood in stool, cas-colored stools, constipation, melena, painful BM Neurological General: headache, weakness All other Systems All Other Systems: Reviewed and Negative Physical Exam General General Nourishment: well nourished, well developed, appears stated age, no acute distress, adult, obese General Body Habitus: well groomed Vitals and Pain Weight: Kilograms: 123.300 Height (feet): 5 Height (inches): 9.00 Triage Pain Scale: RN VS reviewed by Provider: Yes Comments Throughout exam, pt makes various facies and performs a stereotyped lip- smacking. Pt has a remote h/o methamphetamine abuse, per records at [facility] [place] [facility]. Differential Diagnoses Considering: Bowel Obstruction, Dehydration, Diverticulitis, Food Poisoning, Gastroenteritis, Gastroparesis, Hyponatremia, Hypokalemia, Hypoglycemia, Ingestion/Overdose, Toxin, UTI Progress Results/Orders Orders Procedure Category Date Status Time Cbc W/Auto LAB 09/12/16 Complete Diff-Reflex Manual Bmp - Basic Metabolic LAB 09/12/16 Complete Panel Ua, Dip Wreflex LAB 09/12/16 Complete Microsc & Wheel Inspector 20:37 Ketorolac (Toradol) PHA 09/12/16 Complete 20:45 Ondansetron Inj PHA 09/12/16 Complete (Zofran) 20:45 Kub W/Upright RAD 09/12/16 Resulted 20:43 LAB 09/12/16 Complete Qualitative, Serum 20:51 Normal Saline (Normal PHA 09/12/16 Complete Saline Iv) 21:15 Catheterize For Ua ROYAL 09/12/16 Complete 21:56 Ct Abd/Pelvis CT 09/12/16 Resulted W/Contrast Only Iohexol (Omnipaque) PHA 09/12/16 Complete 22:04 Normal Saline (Ns) PHA 09/12/16 Complete 22:04 Saline Flush (Iv PHA 09/12/16 Complete Flush) 22:04 Ondansetron Odt PHA 09/12/16 Complete (Prepack) (Zofran Odt 23:15 Lab Results Laboratory Tests Test 09/12/16 20:48 White Blood Count 16.6T/MM3 Red Blood Count 5.28M/MM3 Hemoglobin 14.6GM/DL Hematocrit 44.2% Mean Corpuscular Volume 83.7UM3 Mean Corpuscular Hemoglobin 27.7UUG Mean Corpuscular Hemoglobin Concent 33.0GM/DL RDW Standard Deviation 41.4FL Platelet Count 270T/MM3 Mean Platelet Volume 11.3UM3 Immature Granulocyte % (Auto) % Neutrophils (%) (Auto) % Lymphocytes (%) (Auto) % Monocytes (%) (Auto) % Eosinophils (%) (Auto) % Basophils (%) (Auto) % Absolute Immature Granulocyte (auto T/MM3 Absolute Neutrophils (auto) T/MM3 Absolute Lymphocytes (auto) T/MM3 Absolute Monocytes (auto) T/MM3 Absolute Eosinophils (auto) T/MM3 Absolute Basophils (auto) T/MM3 Neutrophils % (Manual) 82.0% Band Neutrophils % 2.0% Lymphocytes % (Manual) 7.0% Monocytes % (Manual) 6.0% Eosinophils % (Manual) 3.0% Absolute Neutrophils (Manual) 13.6T/MM3 Band Neutrophils # 0.3T/MM3 Lymphocytes # (Manual) 1.2T/MM3 Monocytes # (Manual) 1.0T/MM3 Eosinophils # (Manual) 0.5T/MM3 Poikilocytosis 1+ [place] Cells 1+ Red Cell Morphology Comment Abnormal Urine Collection Type Cleancatch-midstream Urine Color Yellow Urine Turbidity Clear Urine pH 5.0 Urine Specific [place] 1.010 Urine Protein Negative Urine Glucose (UA) Negative Urine Ketones Negative Urine Blood Negative Urine Nitrite Negative Urine Bilirubin Negative Urine Urobilinogen 0.2EU/DL Urine Leukocyte Esterase Negative Urinalysis Comment Microscopic not ind. Turbidity < 20 Sodium Level 147MEQ/L Potassium Level 4.2MEQ/L Chloride Level 105MEQ/L Carbon Dioxide Level 26MEQ/L Anion Gap 16MEQ/L Blood Urea Nitrogen 16.0MG/DL Creatinine 1.0MG/DL Glomerular Filtration Rate Calc 68 BUN/Creatinine Ratio 16RATIO Glucose Level 110MG/DL Calculated Osmolality 284MOSM/KG Calcium Level 10.1MG/DL Icterus Index < 2 Human Chorionic Gonadotropin, Qual Negative Chemistry Specimen Hemolysis < 15 Medications Current ED Medications Ketorolac Tromethamine (Toradol) 30 mg O ONCE IV Last administered on 21:06; Start 09/12/16 at 20:45; Stop 09/12/16 at 20:46; Status DC Ondansetron HCl 4 mg 4 mg O ONCE IV Last administered on 09/12/16 21:07; Start 09/12/16 at 20:45; Stop 09/12/16 at 20:46; Status DC Sodium Chloride (Normal Saline IV) 1,000 ml @ 0 mls/hr Q0M ONCE IV Last administered on 09/12/16 21:06; Start 09/12/16 at 21:15; Stop 09/12/16 at 21:16; Status DC Iohexol 1 bottle 1 bottle STK-MED ONCE .ROUTE ; Start 09/12/16 at 22:04; Stop 09/12/16 at 22:05; Status DC Sodium Chloride (NS) 100 ml @ As Directed STK-MED ONCE .ROUTE ; Start 09/12/16 at 22:04; Stop 09/12/16 at 22:05; Status DC Sodium Chloride (Iv Flush) 10 ml STK-MED ONCE .ROUTE ; Start 09/12/16 at 22:04; Stop 09/12/16 at 22:05; Status DC Ondansetron HCl (ZOFRAN ODT (PrePack)) 1 pack O ONCE SENT HOME Last administered on 09/12/16 23:15; Start 09/12/16 at 23:15; Stop 09/12/16 at 23:16; Status DC Progress Progress Pt with s/s c/w GE; labs/rads all c/w same. Discussed dx, prognosis, and treatment with pt, who voices understanding. F/u with PCM as outpt. CT CT : CT: Abd/Pelvis IV contrast Interpretation: Abnormal (Findings c/w mesenteric adenitis.), Reviewed Written Report LOS HUANG DO Sep 12, 2016 21:04 Written Report LOS HUANG DO Sep 12, 2016 21:04
[2016-09-12] MEDS ORDERED: NORMAL SALINE 1,000 ML IV ONE (21:15)
[2016-09-12 21:17] LABS: ANION GAP 16 MEQ/L (5-15); BUN/CREATININE RATIO 16 RATIO (6-26); CALCIUM 10.1 MG/DL (8.4-10.2); CHLORIDE 105 MEQ/L (98-107); CO2 - CARBON DIOXIDE 26 MEQ/L (22-30); GLOMERULAR FILTRATION RATE 68; GLUCOSE 110 MG/DL (65-110); POTASSIUM 4.2 MEQ/L (3.6-5); SODIUM 147 MEQ/L (134-144)
--- NOTE | 2016-09-12 21:37 | NUR ---
XRAY PT TO XRAY.
--- NOTE | 2016-09-12 21:40 | NUR ---
Amarjit day in [facility] - 09/13/16 at [address] HUANG IN ROOM WITH PT.
[2016-09-12 21:42] LABS: HCT - HEMATOCRIT 44.2 % (36-46); HGB - HEMOGLOBIN 14.6 GM/DL (12-16); MEAN CORPUSCULAR HGB 27.7 UUG (26-34); MEAN CORPUSCULAR VOLUME 83.7 UM3 (80-100); MEAN PLATELET VOLUME 11.3 UM3 (9.4-12.4); RED BLOOD COUNT 5.28 M/MM3 (4.00-5.20); WBC - WHITE BLOOD COUNT 16.6 T/MM3 (4.5-11.0)
[2016-09-12 21:47] LABS: BAND NEUTROPHILS # 0.3 T/MM3; BURR CELLS 1+; EOSINOPHILS # (MANUAL) 0.5 T/MM3 (0-0.5); LYMPHOCYTES # (MANUAL) 1.2 T/MM3 (1-4.8); NEUTROPHILS #(MANUAL)-ABSOLUTE 13.6 T/MM3 (1.8-7.7); POIKILOCYTOSIS 1+; TOTAL CELLS COUNTED 100 %
--- NOTE | 2016-09-12 21:55 | NUR ---
XRAY PT RETURNED FROM XRAY.
--- OUTSIDE RECORDS SUMMARY | 2016-09-12 21:56 | XMS REPORT ---
Author Author GENERATED, SYSTEM Organization Unknown Address Unknown Phone Unavailable Care Team Providers Care Health Specialist Name Role Phone [facility] PP Unavailable Reason For Visit Chief [...] H (65-99 MG/DL) *GFR EST NON AFR PRYDEINIG >90 ML/MIN *GFRA EST AFR AMER >90 [...] PM* CULTURE URINE (Preliminary Result) Specimen Number: [id number] Sample Collection Date/Time: 10/13/2015 6:55 PM Specimen [...] 06/10/2015 2:56 PM * Completed Procedure Code: 43541 Procedure Name: not valued, on 06/10/2015 12: [...]
--- OUTSIDE RECORDS SUMMARY | 2016-09-12 21:56 | XMS REPORT | Continuity of Care Document ---
Author Author [facility] Organization [facility] Address Unknown Phone Unavailable Allergies Active Description [...] infection, site not specified 12/06/2015 ELVIE VARMA [id number] Concussion without loss of consciousness, initial encounter 12/06/2015 ELVIE VARMA [id number] Striking against other stationary object, initial encounter 12/06/2015 ELVIE VARMA [id number] Bedroom of single-family (private) house as place 12/06/2015 ELVIE VARMA Y939 Activity, unspecified 12/06/2015 ELVIE VARMA Y999 Unspecified external cause status Procedures Results Encounters ACCT No. Visit Date/Time Discharge Status Pt. Type Provider Facility Loc./Unit Complaint [id number] 06/08/2015 00:00:00 05/17/2016 00: 00:00 DIS Outpatient DOMENICO PEARSON APRN
--- OUTSIDE RECORDS SUMMARY | 2016-09-12 21:56 | XMS REPORT ---
Author Author GENERATED, SYSTEM Organization Unknown Address Unknown Phone Unavailable Care Team Providers Care Electronic News Gathering Editor Name Role Phone [facility] PP Unavailable Reason For Visit Chief [...]
--- OUTSIDE RECORDS SUMMARY | 2016-09-12 21:56 | XMS REPORT ---
Author Author GENERATED, SYSTEM Organization Unknown Address Unknown Phone Unavailable Care Team Providers Care Program Supervisor Name Role Phone [facility] PP Unavailable Reason For Visit Chief Complaint [...]
--- OUTSIDE RECORDS SUMMARY | 2016-09-12 21:57 | XMS REPORT ---
Author Author GENERATED, SYSTEM Organization Unknown Address Unknown Phone Unavailable Care Team Providers Care Stationary Fireman Name Role Phone [facility] PP Unavailable Reason For Visit Chief [...] H (65-99 MG/DL) *GFR EST NON AFR [place] 83 ML/MIN *GFRA EST AFR AMER >90 [...] 06/10/2015 2:56 PM * Completed Procedure Code: 16485 Procedure Name: not valued, on 06/10/2015 12: [...]
--- OUTSIDE RECORDS SUMMARY | 2016-09-12 21:57 | XMS REPORT ---
Author Author GENERATED, SYSTEM Organization Unknown Address Unknown Phone Unavailable Care Team Providers Care Scuba Diver Name Role Phone [facility] PP Unavailable Reason For Visit Reason for [...] Management Note : Admission status: Outpatient. [facility] following [...] the responsibility of the patient or patient labor union business representative to confirm the list of medications with either the patient's personal care provider or the patient's follow-up care provider to ensure the patient has an appropriate list of medications to take at home. Discharge medications New medications* HYDROcodone-acetaminophen ([place]) 5 mg-325 mg Tablet, Ordered By: GORDON KENNEDY RN Directions: 1-2 tabs oral every 4hrs prn * minocycline 100 mg Tablet, Ordered By: GORDON KENNEDY RN Directions: 1 tablet oral daily Additional Instructions: For 14 days. Continued medications* sertraline 50 mg Tablet, Ordered By: GORDON KENNEDY RN Directions: 1 tablet oral daily Stopped medications* None
--- OUTSIDE RECORDS SUMMARY | 2016-09-12 21:57 | XMS REPORT ---
Author Author GENERATED, SYSTEM Organization Unknown Address Unknown Phone Unavailable Care Team Providers Care Item Processing Clerk Name Role Phone [facility] PP Unavailable Reason For Visit Chief [...]
--- OUTSIDE RECORDS SUMMARY | 2016-09-12 21:57 | XMS REPORT ---
Author Author GENERATED, SYSTEM Organization Unknown Address Unknown Phone Unavailable Care Team Providers Care Supervisor Nuclear Medicine Name Role Phone [facility] PP Unavailable Reason For Visit Chief Complaint [...] MG/DL (65-99 MG/DL) GFR EST NON AFR FIJIAN >90 ML/MIN GFRA EST AFR AMER >90 [...] 10/05/2014 11:45 AM:* Care Management Note : right of way worker was informed by RN that patient was inquiring about how to get baby onto [facility] ; SW made referral to Lucy Taylor to follow up with patient regarding Medicaid information. Procedures No relevant procedures performed. Immunizations No immunizations administered or ordered. Hospital Course Hospital Discharge Instructions Allergies, Adverse Reactions, Alerts * No Latex Allergy. * No IV Contrast Allergy. * No Known Drug Allergies. Medication It is the responsibility of the patient or patient floor representative to confirm the list of medications [...]
--- OUTSIDE RECORDS SUMMARY | 2016-09-12 21:57 | XMS REPORT ---
Author Author GENERATED, SYSTEM Organization Unknown Address Unknown Phone Unavailable Care Team Providers Care Art Objects Salesperson Name Role Phone [facility] PP Unavailable Reason For Visit Chief [...] H (65-99 MG/DL) *GFR EST NON AFR [place]ERBAIJANI 88 ML/MIN *GFRA EST AFR AMER >90 [...] PM* CULTURE URINE (Preliminary Result) Specimen Number: [id number] Sample Collection Date/Time: 11/28/2015 12:02 PM Specimen Source: Urine CULTURE URINE: >100,000 cfu/ml 3 or more gram positive colony types CT Scan from 11/28/2015 12:57 PMCT CEREBRAL W/O CONTRAST History: dizizness head injury . Pt hit her head on Sunday against a railing on [employer]. pt states she could not miss work or else she would get kicked out of [employer], so she has to have a doctors note. Pt has what appears to be sores all over her body and where she pointed is scabbed over on right yazidism. Pts eyes are equal and reactive, no [...] 06/10/2015 2:56 PM * Completed Procedure Code: 44340 Procedure Name: not valued, on 06/10/2015 12: [...]
--- OUTSIDE RECORDS SUMMARY | 2016-09-12 21:58 | XMS REPORT ---
Author Author GENERATED, SYSTEM Organization Unknown Address Unknown Phone Unavailable Care Team Providers Care Svp Marketing Name Role Phone [facility] PP Unavailable Reason For Visit Chief Complaint [...]
--- NOTE | 2016-09-12 22:00 | NUR ---
PT STATUS PT RETURNED FROM XRAY WITHOUT COMPLAINTS. PT LYING ON LEFT SIDE SLEEPING, IS EASILY WOKEN, DENIES ANY FURTHER NAUSEA OR DISCOMFORT AND STATES SHE JUST WANTS TO SLEEP. CALL LIGHT LEFT IN REACH.
[2016-09-12] MEDS ORDERED: IOHEXOL 300 MG/ML 100ml INJECTION ONE (22:04)
[2016-09-12] MEDS ORDERED: NORMAL SALINE 100 ML ONE (22:04)
[2016-09-12] MEDS ORDERED: SALINE FLUSH 10ml SYRINGE ONE (22:04)
--- NOTE | 2016-09-12 22:04 | NUR ---
CT PT TO CT PER COT.
--- NOTE | 2016-09-12 22:22 | NUR ---
CT PT RETURNED FROM CT.
--- NOTE | 2016-09-12 22:30 | NUR ---
PT STATUS PT CONTINUES TO SLEEP, NO FURTHER EPISODES OF EMESIS OR DIARRHEA, PT DENIES ANY FURTHER NAUSEA. CALL LIGHT IN REACH.
[2016-09-12 22:38] LABS: BLOOD, URINE NEGATIVE (NEGATIVE); COLOR,URINE YELLOW (YELLOW); LEUKOCYTE ESTERASE ,URINE NEGATIVE (NEGATIVE); NITRITE,URINE NEGATIVE (NEGATIVE); UROBILINOGEN,URINE 0.2 EU/DL (NORMAL)
--- NOTE | 2016-09-12 22:40 | NUR ---
PROVIDER DR. HUANG IN ROOM WITH PT.
--- NOTE | 2016-09-12 23:03 | NUR ---
PT STATUS PT CONTINUES TO SLEEP, IS EASILY WOKEN TO VOICE, PT HAS NO FURTHER EPISODES OF EMESIS OR DIARRHEA, PT DENIES ANY FURTHER NAUSEA. CALL LIGHT IN REACH.
[2016-09-12] MEDS ORDERED: ONDA4TAB7 PO (23:04)
[2016-09-12] MEDS ORDERED: ONDANSETRON ODT 4mg #3 (PrePack) SENT HOME ONE (23:15)
--- NOTE | 2016-09-12 23:40 | NUR ---
PROVIDER DR. HUANG IN ROOM WITH PT.
[2016-09-12 23:48] VITALS: BP 124/56; PULSE 88; RESP 16; TEMP 98.6; O2SAT 97
--- NOTE | 2016-09-12 23:48 | NUR ---
DISMISSAL PT IS RELEASED WITH DISMISSAL INSTRUCTIONS, ZOFRAN RX AND PREPACK. PT VERBALIZED UNDERSTANDING OF INSTRUCTIONS AND RX, PREPACK USE, AND DENIES ANY FURTHER QUESTIONS. PT IS AMBULATORY OUT OF THE ED WITHOUT DIFFICULITES.
--- NOTE | 2016-09-13 08:04 | DI ---
Indication: ITS.REASON: N/V/D with abd pain and elevated white count PROCEDURE: CT ABD/PELVIS W/CONTRAST ONLY: Encounter: Initial Comparison: None Technique: Axial CT images were performed through the abdomen and pelvis after the administration of intravenous contrast. Coronal and sagittal two-dimensional reformats. Automated Exposure Control and Iterative Reconstruction dose reducing techniques were utilized. Contrast: Omnipaque 300 100 mL Findings: The lung bases are clear. The liver is normal. The gallbladder, spleen, pancreas and adrenal glands are normal. Kidneys are normal. No abdominal or pelvic lymphadenopathy. Prior appendectomy. Bladder is normal. Uterus and ovaries are unremarkable. No significant free fluid in the pelvis. No evidence of bowel obstruction. Mild colonic diverticulosis distally. No evidence of diverticulitis. Some fluid-filled small bowel loops. Bone windows are within normal limits. Impression: Possible gastroenteritis. Otherwise, no acute disease process seen in the abdomen or pelvis. There is a preliminary report by [employer]. .
--- NOTE | 2016-09-13 08:06 | DI ---
Indication: ITS.REASON: N/V/D PROCEDURE: KUB W/UPRIGHT: Encounter: Initial Comparison: CT abdomen and pelvis from the same date Findings: The visualized lung bases are clear. There is no free air on the upright view. The bowel gas pattern is nonobstructive and nonspecific. Gas is seen in nondilated small and large bowel to the level of the rectum. Moderate stool is seen throughout the colon. The bony structures are grossly unremarkable. Impression: Nonobstructive nonspecific bowel gas pattern. .
== END 2016-09-12 23:48 | disposition home or self-care (01) ==
LOC: ED 19:20
DX: K52.9 Noninfective gastroenteritis and colitis, unspecified (principal)
CPT/HCPCS: 74020; 74177; 80048; 81003; 84703; 85025; 96361; 96374; 96375; 99284; J1885; J2405; J7030; J7050; Q9967